=== PATIENT | female | born 1975 | race Caucasian/White ===

== ENCOUNTER 2019-11-28 12:40 | Emergency (ER) | payer BC ==
[~2019-11-28] VITALS: Ht 162.6 cm; Wt 47.6 kg
[2019-11-28 12:40] VITALS: BP 130/81
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
[2019-11-28] MEDS ORDERED: Methocarbamol 750mg tab ORAL ONE (12:45)
[2019-11-28] MEDS ORDERED: Ketorolac 30mg Inj IM ONE (12:45)
--- NOTE | 2019-11-28 13:00 | NUR ---
ED Nurse Note: Patient refusing to provide us with a urine sample and also refusing to sign waiver, provider is aware.
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
--- NOTE | 2019-11-28 15:05 | NUR ---
ED Nurse Note: Receved report from ZAC Wade. Patient is in the room, AAO x4, VSS at this time, patient is able to ambulate with steady gait. Stated "Who are you, I do not want to talk to you." Patient talking with attitude, loud voice.
--- NOTE | 2019-11-28 15:06 | Diagnostic Imaging Report ---
EXAM: CT Cervical Spine Without Intravenous Contrast CLINICAL HISTORY: TRAUMA TECHNIQUE: Axial computed tomography images of the cervical spine without intravenous contrast. CTDI is 4.1 mGy and DLP is 148 mGy-cm. One or more of the following dose reduction techniques were used: automated exposure control, adjustment of the mA and/or kV according to patient size, use of iterative reconstruction technique. COMPARISON: No relevant prior studies available. FINDINGS: Vertebrae: No acute fracture. Discs/spinal canal/neural foramina: No acute findings. Soft tissues: 1.3 cm hypodense nodule in the superior aspect of the right thyroid lobe as seen on series 4, image 109. No worrisome features or adjacent adenopathy. No further imaging is clearly indicated (per the [employer] white paper guidelines regarding management of incidentally noted thyroid nodules). IMPRESSION: No fracture. 1.3 cm hypodense right thyroid lobe nodule. No further imaging is clearly indicated (per the [employer] white paper guidelines regarding management of incidentally noted thyroid nodules).
--- NOTE | 2019-11-28 15:10 | NUR ---
ED Nurse Note: Spoke with a patient, patient refusing to wait for CT resalts, refusing to sign AMA form, JENNY Rothman aware.
--- NOTE | 2019-11-28 15:15 | Diagnostic Imaging Report ---
EXAM: CT Chest Without Intravenous Contrast CLINICAL HISTORY: TRAUMA TECHNIQUE: Axial computed tomography images of the chest without intravenous contrast. CTDI is 2.7 mGy and DLP is 115.9 mGy-cm. One or more of the following dose reduction techniques were used: automated exposure control, adjustment of the mA and/or kV according to patient size, use of iterative reconstruction technique. COMPARISON: No relevant prior studies available. FINDINGS: Lungs: Unremarkable. No mass. No consolidation. Pleural space: Unremarkable. No pneumothorax. No significant effusion. Heart: Unremarkable. No cardiomegaly. No significant pericardial effusion. Bones/joints: Unremarkable. No acute fracture. No dislocation. Soft tissues: 1.3 cm hypodense right thyroid lobe nodule. Please see discussion in the cervical spine CT report. Vasculature: Unremarkable. No thoracic aortic aneurysm. Lymph nodes: Unremarkable. No enlarged lymph nodes. IMPRESSION: No acute thoracic injury. 1.3 cm hypodense right thyroid lobe nodule. Please see discussion in the cervical spine CT report.
[2019-11-28] MEDS ORDERED: LIDODERM700 M1 TOPIC (15:19)
[2019-11-28] MEDS ORDERED: IBUPROFEN600 MG ORAL (15:19)
[2019-11-28] MEDS ORDERED: ROBAXIN-500MG ORAL (15:19)
[2019-11-28 15:28] VITALS: BP 130/81
--- NOTE | 2019-11-28 15:29 | NUR ---
ED Nurse Note: Pt cleared by health care Provider for discharge. DC instructions/prescription was given and explained to pt and verbalized understanding of teachings. All medical deviecs such as ID band removed. Pt is AAO x4, ambulatory and left with all personal belongings.
== END 2019-11-28 15:28 | disposition home or self-care (01) ==
LOC: EDBD 12:40 → EMR 15:17
DX: S16.1XXA Strain of muscle, fascia and tendon at neck level, initial encounter (principal); S20.219A Contusion of unspecified front wall of thorax, initial encounter; E04.1 Nontoxic single thyroid nodule; V43.52XA Car driver injured in collision with other type car in traffic accident, initial encounter; Y92.410 Unspecified street and highway as the place of occurrence of the external cause; Z88.6 Allergy status to analgesic agent
CPT/HCPCS: 71250; 72125; 96372; 99284; J1885